=== PATIENT | female | born 1985 | race African-American/Black ===

== ENCOUNTER 2023-06-13 19:58 | Emergency (ER) | payer OTHER ==
[~2023-06-13] VITALS: Ht 154.9 cm; Wt 63.5 kg
[2023-06-13 20:01] VITALS: BP_SYST 120; PULSE 90; RESP 17; TEMP 99.1; O2SAT 99
[2023-06-13] MEDS ORDERED: guaiFENesin/DEXTROMETHORPHAN 10 ML UDC PO ONE (20:15)
[2023-06-13 20:44] LABS: INFLUENZA TYPE A Negative (NEGATIVE); INFLUENZA TYPE B NEGATIVE (NEGATIVE)
[2023-06-13] MEDS ORDERED: IBUP-1969 PO (21:21)
[2023-06-13] MEDS ORDERED: BENZ100C92 PO (21:21)
[2023-06-13] MEDS ORDERED: ZIT250 PO (21:21)
== END 2023-06-13 22:01 | disposition home or self-care (01) ==
LOC: SED 19:58
DX: J06.9 Acute upper respiratory infection, unspecified (principal); R05.9 Cough, unspecified; R09.81 Nasal congestion; Z79.899 Other long term (current) drug therapy; Z20.822 Contact with and (suspected) exposure to COVID-19
CPT/HCPCS: 36415; 71045; 81025; 99284